=== PATIENT | male | born 1995 | race Caucasian/White ===

== ENCOUNTER 2018-11-02 12:11 | Emergency (ER) | payer SELFPAY ==
[~2018-11-02] VITALS: Ht 175.3 cm; Wt 61.0 kg
[2018-11-02 12:13] VITALS: BP 115/52
== END 2018-11-02 14:03 | disposition left against medical advice (07) ==
LOC: ER 12:11
DX: Z53.21 Procedure and treatment not carried out due to patient leaving prior to being seen by health care provider (principal)